=== PATIENT | male | born 1965 | race Caucasian/White ===

== ENCOUNTER 2016-07-07 07:06 | Day surgery (SDC) | payer OTHER ==
[~2016-07-07] VITALS: Ht 167.6 cm; Wt 84.7 kg
[2016-07-07 07:57] VITALS: Ht 167.6 cm; Wt 84.7 kg
[2016-07-07] MEDS ORDERED: ALLO100T PO (08:07)
[2016-07-07] MEDS ORDERED: OMEP20CA16 PO (08:07)
[2016-07-07] MEDS ORDERED: GEMF600T60 PO (08:07)
[2016-07-07 08:33] VITALS: BP 133/84; PULSE 66
[2016-07-07 09:34] VITALS: BP 116/80; PULSE 77; RESP 16
[2016-07-07] MEDS ORDERED: FENTAnyl 50 MCG/ML VIAL ONE (09:40)
[2016-07-07] MEDS ORDERED: MIDAZOLAM 1 MG/ML 2 ML INJ ONE ×3 (09:40)
[2016-07-07 10:07] VITALS: BP 117/77; PULSE 66
--- NOTE | 2016-07-07 10:34 | GILP ---
DATE OF PROCEDURE: 07/07/2016 NAME OF PROCEDURES: 1. Esophagogastroduodenoscopy and biopsy. 2. Colonoscopy and biopsy. SURGEON: Dilia Ventura MD PREOPERATIVE DIAGNOSES: 1. Abdominal pain. 2. Screening colonoscopy. POSTOPERATIVE DIAGNOSES: 1. Gastritis with erosions. 2. Gastric mucosal biopsies were taken for Helicobacter pylori test. 3. Colonoscopy all the way to the cecum. 4. Small transverse colon polyp was removed using the biopsy forceps. 5. Diverticulosis of the colon. 6. Internal hemorrhoids. INDICATION FOR THE PROCEDURES: Mr. Alex Michael is a 51-year-old male patient who had upper abdom inal pain, not responding to therapy. He also needed a screening colonoscopy. The procedures and possible complications are well explained to the patient. The patient understood and consented to the procedure. DESCRIPTION OF PROCEDURE: Under the influence of fentanyl and Versed, the gastroscope was carefully introduced into the esophagus and under direct vision, it was advanced to the stomach and through t he pylorus into the duodenal bulb and descending duodenum. FINDINGS: ESOPHAGUS: The patient had normal esophageal mucosa. STOMACH: The patient had gastritis with erosions. Gastric mucosal biopsies were taken for H. pylor i test. DUODENUM: Normal. The colonoscope was carefully introduced in the rectum and under direct vision, it was advanced all the way to the cecum. FINDINGS: The patient had a small transverse colon polyp and it was removed using the biopsy forcep s. He was noted to have diverticulosis of the colon. He also had internal hemorrhoids. He tolerated the procedures very well and there was no complication from the procedures. At the end of the procedures, he was awake with stable vital signs and he was discharged home to the care of h is family. IMPRESSION: Please see postoperative diagnoses. PLAN: 1. Continue omeprazole. 2. Add Zantac 300 mg p.o. at bedtime. 3. Await histopathology reports. 4. Next screening colonoscopy in 10 years. Dictated By: DILIA CAIN/FLO Conf#: [id number] DID#: [id number] CC: DILIA VENTURA MD;*EndCC*
[2016-07-07 10:36] VITALS: BP 136/76; PULSE 80; RESP 18
== END 2016-07-07 11:14 | disposition home or self-care (01) ==
LOC: GIL 07:06
PROVIDERS: ATTEND Internal Medicine Gastroenterology
DX: Z12.11 Encounter for screening for malignant neoplasm of colon (principal); D12.3 Benign neoplasm of transverse colon; K29.60 Other gastritis without bleeding; K57.90 Diverticulosis of intestine, part unspecified, without perforation or abscess without bleeding; K64.8 Other hemorrhoids; I12.9 Hypertensive chronic kidney disease with stage 1 through stage 4 chronic kidney disease, or unspecified chronic kidney disease; N18.3 Chronic kidney disease, stage 3 (moderate); E78.5 Hyperlipidemia, unspecified; E66.9 Obesity, unspecified; Z68.30 Body mass index [BMI] 30.0-30.9, adult
CPT/HCPCS: 43239; 45380; 87081; 88305; J2250; J3010; Z7610